=== PATIENT | female | born 1980 | race Caucasian/White ===

== ENCOUNTER → 2016-07-19 | Outpatient (CLI) | payer OTHER ==
[~2016-07-19] MED LIST: COLACE100 MG PO; HYDROCODONE BIT1 T11 PO; IBU-6600 MG PO; MOTRIN800 MG PO; PERCOCET 325 MG1 TA7 PO; PRENATAL1 TA1; ZITHROMAX250 MG PO
[2016-07-20 08:17] LABS: HIV 1+2 AB + HIV1 P24 AG Non Reactive (Non Reactive)
== END | disposition home or self-care (01) ==
LOC: LAB 08:02
PROVIDERS: Internal Medicine
DX: Z20.828 Contact with and (suspected) exposure to other viral communicable diseases (principal)

== ENCOUNTER → 2016-10-19 | Outpatient (CLI) | payer OTHER | END | disposition home or self-care (01) | LOC: RESCLI 09:21 | DX: M94.0 Chondrocostal junction syndrome [Tietze] (principal) ==

== ENCOUNTER → 2017-01-12 | Outpatient (CLI) | payer OTHER ==
[2017-01-12 16:10] LABS: BASO % 0.4 % (0.0-1.0); EOS # 0.1 10*3/uL (0.0-0.4); HEMATOCRIT 40.3 % (37.0-47.0); HEMOGLOBIN 13.9 g/dl (12.0-16.0); LYMPH # 1.6 10*3/uL (1.3-4.4); LYMPH % 23.1 % (27.0-41.0); MEAN CORPUSCULAR HGB 30.3 pg (27.0-31.0); MEAN CORPUSCULAR HGB CONC 34.5 g/dl (33.0-37.0); MEAN PLATELET VOLUME 10.6 fl (9.6-12.3); MONO # 0.4 10*3/uL (0.1-1.0); MONO % 5.7 % (3.0-9.0); NEUT # 4.6 10*3/uL (2.3-7.9); NEUT % 69.2 % (47.0-73.0); PLATELET COUNT AUTOMATED 301 10*3/uL (130-400); RED BLOOD COUNT 4.58 10*6/uL (4.10-5.10); RED CELL DISTRI WIDTH 11.8 % (0-14.5); WHITE BLOOD COUNT 6.7 10*3/uL (4.8-10.8)
[2017-01-12 16:20] LABS: ALBUMIN 4.4 gm/dl (3.1-4.5); ALKALINE PHOSPHATASE 75 U/L (45-117); BUN 11 mg/dl (7-24); CHLORIDE 104 mmol/L (98-107); CHOLESTEROL 150 mg/dL (<200); CREATININE 0.89 mg/dL (0.55-1.02); HDL CHOLESTEROL 47 mg/dl (40-60); LDL CHOLESTEROL 92 mg/dL (9-159); POTASSIUM 3.8 mmol/L (3.5-5.1); SGOT/AST 11 IU/L (3-35); SGPT/ALT 22 U/L (12-78); SODIUM 140 mmol/L (136-145); TOTAL PROTEIN 7.9 gm/dL (6.4-8.2); TRIGLYCERIDES 55 mg/dl (<150); VLDL CHOLESTEROL 11 mg/dL (6-40)
[2017-01-12 16:21] LABS: FREE T4 1.12 ng/dl (0.76-1.46)
[2017-01-12 16:52] LABS: VITAMIN D, 25-HYDROXY 26.6 ng/mL (30-100)
== END | disposition home or self-care (01) ==
LOC: LAB 15:42
PROVIDERS: Internal Medicine
DX: Z13.220 Encounter for screening for lipoid disorders (principal); Z13.1 Encounter for screening for diabetes mellitus; Z13.21 Encounter for screening for nutritional disorder; R53.81 Other malaise; E78.2 Mixed hyperlipidemia; E55.9 Vitamin D deficiency, unspecified

== ENCOUNTER 2017-07-22 10:05 | Emergency (ER) | payer OTHER ==
[~2017-07-22] VITALS: Wt 63.5 kg
[2017-07-22] MEDS ORDERED: AVPAK AZITHROM250 M1 PO (10:15)
== END 2017-07-22 10:36 | disposition home or self-care (01) ==
LOC: ED 10:05
DX: J06.9 Acute upper respiratory infection, unspecified (principal)

== ENCOUNTER 2017-07-24 10:21 | Emergency (ER) | payer OTHER ==
[~2017-07-24] VITALS: Ht 165.1 cm; Wt 65.8 kg
[~2017-07-24 10:21] MED LIST changes: +AVPAK AZITHROM250 M1 PO
[2017-07-24 11:06] LABS: BASO % 0.2 % (0.0-1.0); EOS # 0.1 10*3/uL (0.0-0.4); EOS % 0.8 % (1.0-4.0); HEMATOCRIT 40.7 % (37.0-47.0); HEMOGLOBIN 14.1 g/dl (12.0-16.0); LYMPH # 1.1 10*3/uL (1.3-4.4); LYMPH % 12.6 % (27.0-41.0); MEAN CELL VOLUME 90.8 fl (81.0-99.0); MEAN CORPUSCULAR HGB 31.5 pg (27.0-31.0); MEAN CORPUSCULAR HGB CONC 34.6 g/dl (33.0-37.0); MONO # 0.4 10*3/uL (0.1-1.0); MONO % 4.8 % (3.0-9.0); NEUT # 6.8 10*3/uL (2.3-7.9); NEUT % 81.4 % (47.0-73.0); PLATELET COUNT AUTOMATED 277 10*3/uL (130-400); RED BLOOD COUNT 4.48 10*6/uL (4.10-5.10); RED CELL DISTRI WIDTH 11.7 % (0-14.5); WHITE BLOOD COUNT 8.4 10*3/uL (4.8-10.8)
[2017-07-24 11:21] LABS: ALKALINE PHOSPHATASE 72 U/L (45-117); BUN 12 mg/dl (7-24); CHLORIDE 106 mmol/L (98-107); CREATININE 0.76 mg/dL (0.55-1.02); POTASSIUM 3.8 mmol/L (3.5-5.1); SGOT/AST 15 IU/L (3-35); SGPT/ALT 25 U/L (12-78); SODIUM 139 mmol/L (136-145); TOTAL PROTEIN 7.8 gm/dL (6.4-8.2)
[2017-07-24] MEDS ORDERED: CLARITIN-D 24 H1 TAB PO (11:24)
[2017-07-24] MEDS ORDERED: ROBITUSSIN DM 105 ML PO (11:24)
[2017-07-24] MEDS ORDERED: FLONASE ALLERG9.9 ML NAS (11:24)
[2017-07-24] MEDS ORDERED: PREDNISONE10 MG PO (11:24)
== END 2017-07-24 11:30 | disposition home or self-care (01) ==
LOC: ED 10:21
PROVIDERS: Nurse Practitioner Family
DX: J06.9 Acute upper respiratory infection, unspecified (principal); R03.0 Elevated blood-pressure reading, without diagnosis of hypertension; Z79.899 Other long term (current) drug therapy

== ENCOUNTER → 2018-07-27 | Outpatient (CLI) | payer OTHER ==
[~2018-07-27] MED LIST changes: +CLARITIN-D 24 H1 TAB PO; +FLONASE ALLERG9.9 ML NAS; +PREDNISONE10 MG PO; +ROBITUSSIN DM 105 ML PO
[2018-07-27 05:59] LABS: B-hCG (QUALITATIVE) NEGATIVE (NEGATIVE); CHOLESTEROL 157 mg/dL (<200); FREE T4 0.97 ng/dl (0.76-1.46); HDL CHOLESTEROL 43 mg/dl (40-60); LDL CHOLESTEROL 98 mg/dL (9-159); TRIGLYCERIDES 79 mg/dl (<150); VLDL CHOLESTEROL 16 mg/dL (6-40)
[2018-07-27 06:14] LABS: BASO # 0.1 10*3/uL (0.0-0.1); EOS # 0.2 10*3/uL (0.0-0.4); EOS % 3.4 % (1.0-4.0); HEMOGLOBIN 13.8 g/dl (12.0-16.0); LYMPH # 1.4 10*3/uL (1.3-4.4); LYMPH % 27.3 % (27.0-41.0); MEAN CELL VOLUME 90.7 fl (81.0-99.0); MEAN CORPUSCULAR HGB 31.3 pg (27.0-31.0); MEAN CORPUSCULAR HGB CONC 34.5 g/dl (33.0-37.0); MEAN PLATELET VOLUME 11.2 fl (9.6-12.3); MONO # 0.4 10*3/uL (0.1-1.0); MONO % 8.2 % (3.0-9.0); NEUT % 59.9 % (47.0-73.0); PLATELET COUNT AUTOMATED 270 10*3/uL (130-400); RED BLOOD COUNT 4.41 10*6/uL (4.10-5.10); RED CELL DISTRI WIDTH 12.1 % (0-14.5)
[2018-07-28 07:10] LABS: FOLLICLE STIMULATING HORMONE 6.3 mIU/mL (.); LUTEINIZING HORMONE 004283 6.5 mIU/mL (.); PROLACTIN 004465 11.8 ng/mL (4.8-23.3)
[2018-07-29 04:04] LABS: TESTOSTERONE FREE, (DIRECT) 2.2 pg/mL (0.0-4.2)
== END | disposition home or self-care (01) ==
LOC: LAB 01:19
PROVIDERS: Obstetrics & Gynecology
DX: N93.9 Abnormal uterine and vaginal bleeding, unspecified (principal); E66.3 Overweight

== ENCOUNTER → 2018-11-27 | Outpatient (CLI) | payer OTHER | END | disposition home or self-care (01) | LOC: LAB 14:37 | DX: K90.0 Celiac disease (principal) ==

== ENCOUNTER 2018-12-05 14:19 | Emergency (ER) | payer OTHER ==
[~2018-12-05] VITALS: Ht 165.1 cm; Wt 72.6 kg
[2018-12-05 14:57] LABS: BASO % 0.4 % (0.0-1.0); EOS # 0.1 10*3/uL (0.0-0.4); EOS % 1.7 % (1.0-4.0); HEMATOCRIT 39.5 % (37.0-47.0); HEMOGLOBIN 13.6 g/dl (12.0-16.0); LYMPH # 1.8 10*3/uL (1.3-4.4); LYMPH % 24.1 % (27.0-41.0); MEAN CELL VOLUME 90.2 fl (81.0-99.0); MEAN CORPUSCULAR HGB 31.1 pg (27.0-31.0); MEAN CORPUSCULAR HGB CONC 34.4 g/dl (33.0-37.0); MEAN PLATELET VOLUME 11.9 fl (9.6-12.3); MONO # 0.5 10*3/uL (0.1-1.0); MONO % 5.9 % (3.0-9.0); NEUT # 5.1 10*3/uL (2.3-7.9); NEUT % 67.6 % (47.0-73.0); PLATELET COUNT AUTOMATED 251 10*3/uL (130-400); RED BLOOD COUNT 4.38 10*6/uL (4.10-5.10); RED CELL DISTRI WIDTH 12.3 % (0-14.5); WHITE BLOOD COUNT 7.6 10*3/uL (4.8-10.8)
[2018-12-05 15:12] LABS: ALKALINE PHOSPHATASE 55 U/L (45-117); BUN 13 mg/dl (7-24); CHLORIDE 106 mmol/L (98-107); CREATININE 0.87 mg/dL (0.55-1.02); LIPASE 140 U/L (73-393); POTASSIUM 4.9 mmol/L (3.5-5.1); SGOT/AST 29 IU/L (3-35); SGPT/ALT 21 U/L (12-78); SODIUM 138 mmol/L (136-145); TOTAL PROTEIN 7.2 gm/dL (6.4-8.2)
[2018-12-05 15:50] LABS: BILIRUBIN NEGATIVE (NEGATIVE); BLOOD TRACE-LYSED (NEGATIVE); CLARITY CLEAR (CLEAR); COLOR YELLOW (YELLOW); GLUCOSE NEGATIVE (NEGATIVE); KETONE NEGATIVE (NEGATIVE); LEUKO ESTERASE NEGATIVE (NEGATIVE); NITRITE NEGATIVE (NEGATIVE); UROBILINOGEN 0.2 E.U./dl (0.2-1.0)
[2018-12-05 15:57] LABS: RBC 0-2 rbc/hpf (0-2)
== END 2018-12-05 17:27 | disposition home or self-care (01) ==
LOC: ED 14:19
PROVIDERS: Physician Assistant
DX: D26.9 Other benign neoplasm of uterus, unspecified (principal)

== ENCOUNTER → 2018-12-31 | Outpatient (CLI) | payer OTHER ==
[~2018-12-31] MED LIST changes: +HYDROCODONE-AC1 EAC1 PO; +IBU800 M1 PO
== END | disposition home or self-care (01) ==
LOC: LAB 14:20
DX: N93.8 Other specified abnormal uterine and vaginal bleeding (principal); D25.9 Leiomyoma of uterus, unspecified

== ENCOUNTER 2019-01-08 01:43 | Inpatient (IN) | payer OTHER ==
[2019-01-03 15:15] VITALS: BP 132/77
[2019-01-08] VITALS (8 sets, daily range): BP systolic 113–144; BP diastolic 70–86
[~2019-01-08] VITALS: Ht 165.1 cm; Wt 67.1 kg
[~2019-01-08 01:43] MED LIST changes: -HYDROCODONE-AC1 EAC1 PO; -IBU800 M1 PO
--- NOTE | 2019-01-08 09:24 | NUR ---
IV started left hand with #20 protective cath after 1 attempts. Site prepped with Chloroprep. Sterile dressing applied. Patient tolerated procedure well. Started by Dr Wang in Surgery DREW ARTEAGA
--- NOTE | 2019-01-08 15:15 | NUR ---
A 38, admitted to , under the services of SHANNAN Mas DO with a diagnosis of HYSTERECTOMY. Chief complaint is PAIN. Patient arrived via bed from [place]. Monitor applied. Initial assessment completed. Vital signs taken and recorded. SHANNAN MAS DO notified of admission to the unit. Orders received. See assessment for past medical history, medications and allergies. Patient and/or family oriented to unit. [facility] M.SLakesha visitation policy reviewed. Clothing/patient valuable form completed. MENDOZA CINTRON
--- NOTE | 2019-01-08 15:15 | NUR ---
WOUND ASSESSMENT OCCURRED 01/08/19. UNABLE TO EDIT. ORIN INCISION SITE, DRESSING INTACT FROM SURGERY. NO WOUND ORDERS RECEIVED FROM DR. COOK AT THIS TIME.
--- NOTE | 2019-01-08 15:30 | NUR ---
PT ALERT AND ORIENTED. VOICES NO NEEDS AT THIS TIME. STATES THAT SHES A LITTLE TIRED. IV INFUSING; PATENT. CALL LIGHT IN REACH
--- NOTE | 2019-01-08 18:00 | NUR ---
PER PT, "TORADOL HELPED A LITTLE"
--- NOTE | 2019-01-08 19:00 | NUR ---
PT MEDICATED WITH NORCO PER ORDER FOR COMPLAINTS OF 10/10 PAIN. WILL MONITOR EFFECTIVENESS.
--- NOTE | 2019-01-08 19:49 | NUR ---
24 HR chart check completed.
--- NOTE | 2019-01-08 19:57 | NUR ---
PT REQUESTING TO STAY NIGHT. CALLED ANIMAL CARE SUPERVISOR, PER POLICY CANT STAY IN PT ROOM.
--- NOTE | 2019-01-08 20:00 | NUR ---
IS X 10 BREATHS WITH GOOD EFFORT. PATIENT WILL CONTINUE ON OWN
--- NOTE | 2019-01-08 21:29 | NUR ---
ADVANCED TO FULL LIQUID DIET FOR BREAKFAST PER ORDER AND PT REQUEST. TOLERATED CLEAR LIQUIDS WELL.
--- NOTE | 2019-01-08 22:54 | NUR ---
PT REFUSED SCD'S.
[2019-01-09] VITALS: BP 133/81
--- NOTE | 2019-01-09 05:55 | NUR ---
CORINEMERT Lai [id number] Please refer to the physician's history and physical for past medical history, comorbid conditions, and allergies. Diagnosis: TOTAL LAPROSCOPIC HYSTERECTOMY Brendan Score: 20,LOW OR NO RISK WOUND DESCRIPTIONS: Patient stated she had surgery with yesterday and will follow up with her upon discharge. Dressing intact to above pubic area with strikethrough drainage noted about 95% of the dressing is covered opsite is still intact at time of assessment. Patient has two steristripts intact to umbilical area and right lower quadrant. No draiange noted at time of assessment to the steristripts. Surface the patient is resting on: Isoflex SKIN PREVENTION RECOMMENDATION: 1. Pressure redistribution support surface as appropriate 2. Elevate heels 3. Remove boots/TEDS every shift and reapply 4. Head of bed 30 degrees as tolerated 5. Assess nutrition and hydration 6. Manage moisture 7. Avoid the use of containment devices while in bed 8. Use absorptive products on surfaces limit layers of linens on bed 9. Turn and reposition every 1-2 hours in bed and every 1 hour in chair as tolerated 10. Weight shifts every 15 minutes while up in chair 11. Offloading with pillows or device to keep heels elevated off bed 12. Monitor skin at least every shift 13. Inspect under medical devices twice a day WOUND TREATMENT RECOMMENDATIONS: Await post op order from Dr. Espinoza since performed the surgery.
--- NOTE | 2019-01-09 07:52 | NUR ---
PATIENT C/O LOWER ABDOMINAL PAIN AT SURGICAL SITE. MEDICATED WITH NORCO PER PRN ORDER. WILL CONTINUE TO MONITOR.
[2019-01-09 08:00] VITALS: BP 121/68
--- NOTE | 2019-01-09 09:00 | NUR ---
PATIENT RESTING QUIETLY. NORCO SEMIEFFECTIVE. STATES THAT IT DECREASES THE PAIN BUT DOES NOT TAKE IT COMPLETELY AWAY.
--- NOTE | 2019-01-09 11:31 | NUR ---
PATIENT C/O LOWER ABDOMINAL PAIN AT SURGICAL SITE. PATIENT IS GOING TO GET UP IN THE CHAIR OUT OF BED. MEDICATED WITH TORADOL PER PRN ORDER. WILL CONTINUE TO MONITOR.
[2019-01-09 12:00] VITALS: BP 115/69
--- NOTE | 2019-01-09 12:30 | NUR ---
PATIENT SITTING UP IN CHAIR. NO FURTHER C/O PAIN AT THIS TIME.
--- NOTE | 2019-01-09 13:41 | NUR ---
[employer] Director in to talk to patient. Patient states lives at HOME with . There are FEW steps in the home. Physician: DILIP Pharmacy: [facility]: NO Patient's level of ADLs: INDEPENDENT Patient has working utilities: YES DME: NONE Follow-up physician's appointment after d/c: WILL BE MADE BY HOSPITALIST NURSE DIRECTOR ON DISCHARGE Does patient want to access PORTAL?: NO Discharge plan PT LIVES AT HOME WITH HER AND IS INDEPENDENT IN CARE. PT STATES SHE WILL RETURN HOME WITH ON DISCHARGE AND WILL HAVE NO NEW NEEDS. WILL CONTINUE TO FOLLOW. STATES HER WILL TRANSPORT HER HOME. LYNNE CLARKE
[2019-01-09 13:49] LABS: BASO % 0.2 % (0.0-1.0); EOS % 0.2 % (1.0-4.0); HEMATOCRIT 32.1 % (37.0-47.0); HEMOGLOBIN 10.6 g/dl (12.0-16.0); LYMPH # 1.6 10*3/uL (1.3-4.4); LYMPH % 17.4 % (27.0-41.0); MEAN CELL VOLUME 93.9 fl (81.0-99.0); MEAN PLATELET VOLUME 10.9 fl (9.6-12.3); MONO # 0.8 10*3/uL (0.1-1.0); MONO % 8.8 % (3.0-9.0); NEUT # 6.9 10*3/uL (2.3-7.9); NEUT % 73.2 % (47.0-73.0); PLATELET COUNT AUTOMATED 269 10*3/uL (130-400); RED BLOOD COUNT 3.42 10*6/uL (4.10-5.10); RED CELL DISTRI WIDTH 12.3 % (0-14.5); WHITE BLOOD COUNT 9.4 10*3/uL (4.8-10.8)
--- NOTE | 2019-01-09 14:56 | NUR ---
PATIENT BACK IN BED. C/O LOWER ABDOMINAL SURGICAL PAIN. MEDICATED WITH NORCO PER PRN ORDER.
--- NOTE | 2019-01-09 15:37 | NUR ---
PATIENT RESTING QUIETLY. PAIN HAS DECREASED SINCE MUSCLE SHOALS. WILL CONTINUE TO MONITOR.
[2019-01-09 16:00] VITALS: BP 104/67
--- NOTE | 2019-01-09 19:35 | NUR ---
NORCO GIVEN PER ORDER FOR RIGHT SIDE ABD/RIB PAIN RATED "7". SEE MAR.
[2019-01-09 20:00] VITALS: BP 105/52
--- NOTE | 2019-01-09 20:30 | NUR ---
NORCO EFFECTIVE FOR DISCOMFORT. ENCOURAGED PATIENT TO GET UP AND MOVE MORE. PT. SAID SHE WAS UP TO BATHROOM AND SAT IN CHAIR EARLIER.
[2019-01-10] VITALS: BP 110/68
--- NOTE | 2019-01-10 02:04 | NUR ---
24 HR chart check completed.
--- NOTE | 2019-01-10 02:34 | NUR ---
NORCO GIVEN PER ORDER FOR ABD/INCISIONAL PAIN RATED "8". SEE MAR.
--- NOTE | 2019-01-10 03:20 | NUR ---
Aliyah becoming effective per pt.
--- NOTE | 2019-01-10 06:47 | NUR ---
MYLICON GIVEN PER ORDER FOR GAS PAIN. SEE MAR.
--- NOTE | 2019-01-10 07:53 | NUR ---
PATIENT C/O LOWER ABDOMINAL PAIN AT SURGICAL SITE. RATE 9/10 ON PAIN SCALE. MEDICATED WITH NORCO PER PRN ORDER. WILL CONTINUE TO MONITOR.
[2019-01-10 08:00] VITALS: BP 124/65
[2019-01-10] MEDS ORDERED: HYDROCODONE-AC1 EAC1 PO (08:01)
[2019-01-10] MEDS ORDERED: IBU800 M1 PO (08:01)
[2019-01-10 12:00] VITALS: BP 122/62
--- NOTE | 2019-01-10 13:05 | NUR ---
PT STATES NO NEW NEEDS AT HOME ON DISCHARGE. WILL CONTINUE TO FOLLOW.
--- NOTE | 2019-01-10 14:07 | NUR ---
PATIENT DISCHARGED TO HOME. ALL PERSONAL BELONGINGS SENT WITH PATIENT. IV DISCONTINUED. DISCHARGE INSTRUCTIONS GIVEN AND REVIEWED WITH PATIENT. PATIENT GIVEN PRESCRIPTION FOR NORCO AND INFORMED OF IBUPROFEN PRESCRIPTION SENT TO [facility]. REYNOLDS CATHETER SWITCHED TO LEG BAG. INSTRUCTED TO FOLLOW UP WITH IN ONE WEEK.
== END 2019-01-10 14:07 | disposition home or self-care (01) | DRG 743 ==
LOC: SDC 01:43 → 5E 07:35 → SDC 09:30 → 5E 01-10 14:07
PROVIDERS: ADMIT Obstetrics & Gynecology
DX: D25.1 Intramural leiomyoma of uterus (principal); N94.10 Unspecified dyspareunia; G89.29 Other chronic pain; Z98.891 History of uterine scar from previous surgery; Z82.49 Family history of ischemic heart disease and other diseases of the circulatory system

== ENCOUNTER → 2019-01-14 | Outpatient (CLI) | payer OTHER ==
[~2019-01-14] MED LIST changes: +HYDROCODONE-AC1 EAC1 PO; +IBU800 M1 PO
[2019-01-14 17:51] LABS: BILIRUBIN NEGATIVE (NEGATIVE); BLOOD 1+ (NEGATIVE); CLARITY CLOUDY (CLEAR); COLOR YELLOW (YELLOW); GLUCOSE NEGATIVE (NEGATIVE); KETONE NEGATIVE (NEGATIVE); LEUKO ESTERASE 1+ (NEGATIVE); NITRITE POSITIVE (NEGATIVE); SPECIFIC GRAVITY 1.015 (1.005-1.030); UROBILINOGEN 0.2 E.U./dl (0.2-1.0)
[2019-01-14 18:06] LABS: BACTERIA 2+; CALCIUM OXALATE CRYSTALS 1+; RBC 16-20 rbc/hpf (0-2)
== END | disposition home or self-care (01) ==
LOC: LAB 17:25
PROVIDERS: Obstetrics & Gynecology
DX: R30.0 Dysuria (principal)

== ENCOUNTER → 2019-01-23 | Outpatient (CLI) | payer OTHER ==
[2019-01-23 17:52] LABS: BILIRUBIN NEGATIVE (NEGATIVE); BLOOD 3+ (NEGATIVE); CLARITY SL CLOUDY (CLEAR); COLOR YELLOW (YELLOW); GLUCOSE NEGATIVE (NEGATIVE); KETONE NEGATIVE (NEGATIVE); LEUKO ESTERASE 1+ (NEGATIVE); NITRITE NEGATIVE (NEGATIVE); SPECIFIC GRAVITY 1.015 (1.005-1.030); UROBILINOGEN 0.2 E.U./dl (0.2-1.0)
[2019-01-23 18:02] LABS: RBC 51-100 rbc/hpf (0-2); WBC 31-40 wbc/hpf (0-5)
[2019-01-23 18:03] LABS: BACTERIA 1+
== END | disposition home or self-care (01) ==
LOC: LAB 17:13
PROVIDERS: Obstetrics & Gynecology
DX: R30.0 Dysuria (principal)

== ENCOUNTER 2019-08-27 10:23 | Emergency (ER) | payer OTHER ==
[~2019-08-27] VITALS: Wt 70.3 kg
[2019-08-27] MEDS ORDERED: IBU800 MG PO (12:52)
== END 2019-08-27 13:04 | disposition home or self-care (01) ==
LOC: ED 10:23
DX: S93.401A Sprain of unspecified ligament of right ankle, initial encounter (principal); M79.671 Pain in right foot; G43.909 Migraine, unspecified, not intractable, without status migrainosus; X58.XXXA Exposure to other specified factors, initial encounter; Y93.02 Activity, running; Y92.89 Other specified places as the place of occurrence of the external cause; Y99.8 Other external cause status

== ENCOUNTER → 2020-10-30 | Outpatient (CLI) | payer OTHER ==
[~2020-10-30] MED LIST changes: +IBU800 MG PO
[2020-10-30 07:15] LABS: BASO # 0.1 10*3/uL (0.0-0.1); BASO % 0.7 % (0.0-1.0); EOS # 0.1 10*3/uL (0.0-0.4); LYMPH # 1.5 10*3/uL (1.3-4.4); LYMPH % 22.4 % (27.0-41.0); MEAN CELL VOLUME 89.9 fl (81.0-99.0); MEAN CORPUSCULAR HGB 31.3 pg (27.0-31.0); MEAN CORPUSCULAR HGB CONC 34.8 g/dl (33.0-37.0); MEAN PLATELET VOLUME 10.8 fl (9.6-12.3); MONO # 0.4 10*3/uL (0.1-1.0); MONO % 6.4 % (3.0-9.0); NEUT # 4.7 10*3/uL (2.3-7.9); NEUT % 69.2 % (47.0-73.0); PLATELET COUNT AUTOMATED 284 10*3/uL (130-400); RED BLOOD COUNT 4.67 10*6/uL (4.10-5.10); RED CELL DISTRI WIDTH 11.9 % (0-14.5); WHITE BLOOD COUNT 6.8 10*3/uL (4.8-10.8)
[2020-10-30 07:50] LABS: ALBUMIN 4.2 gm/dl (3.1-4.5); ALKALINE PHOSPHATASE 65 U/L (45-117); BUN 15 mg/dl (7-24); CHLORIDE 108 mmol/L (98-107); CHOLESTEROL 162 mg/dL (<200); CREATININE 0.81 mg/dL (0.55-1.02); FREE T4 1.03 ng/dl (0.76-1.46); LDL CHOLESTEROL 108 mg/dL (9-159); POTASSIUM 3.9 mmol/L (3.5-5.1); SGOT/AST 13 IU/L (3-35); SGPT/ALT 24 U/L (12-78); SODIUM 138 mmol/L (136-145); TOTAL PROTEIN 7.6 gm/dL (6.4-8.2); TRIGLYCERIDES 84 mg/dl (<150)
[2020-10-30 09:32] LABS: VITAMIN D, 25-HYDROXY 52.3 ng/mL (30-100)
== END | disposition home or self-care (01) ==
LOC: LAB 00:29
PROVIDERS: ATTEND Internal Medicine
DX: Z00.01 Encounter for general adult medical examination with abnormal findings (principal); R22.43 Localized swelling, mass and lump, lower limb, bilateral; E55.9 Vitamin D deficiency, unspecified; Z13.21 Encounter for screening for nutritional disorder; Z13.220 Encounter for screening for lipoid disorders; Z13.1 Encounter for screening for diabetes mellitus

== ENCOUNTER 2021-02-16 12:31 | Emergency (ER) | payer OTHER ==
[~2021-02-16] VITALS: Ht 165.1 cm; Wt 69.9 kg
[2021-02-16] MEDS ORDERED: PROVENTIL HFA6.7 GM INH (14:28)
[2021-02-16] MEDS ORDERED: PREDNISONE20 M1 PO (14:28)
== END 2021-02-16 15:29 | disposition home or self-care (01) ==
LOC: ED 12:31
DX: U07.1 COVID-19 (principal)

== ENCOUNTER → 2022-01-25 | Outpatient (CLI) | payer OTHER ==
[~2022-01-25] MED LIST changes: +PREDNISONE20 M1 PO; +PROVENTIL HFA6.7 GM INH
[2022-01-25 06:05] LABS: BASO % 0.6 % (0.0-1.0); EOS # 0.1 10*3/uL (0.0-0.4); EOS % 1.9 % (1.0-4.0); HEMATOCRIT 42.7 % (37.0-47.0); LYMPH # 1.4 10*3/uL (1.3-4.4); LYMPH % 22.2 % (27.0-41.0); MEAN CELL VOLUME 91.2 fl (81.0-99.0); MEAN CORPUSCULAR HGB 31.4 pg (27.0-31.0); MEAN CORPUSCULAR HGB CONC 34.4 g/dl (33.0-37.0); MEAN PLATELET VOLUME 11.1 fl (9.6-12.3); MONO # 0.5 10*3/uL (0.1-1.0); MONO % 7.3 % (3.0-9.0); NEUT # 4.1 10*3/uL (2.3-7.9); NEUT % 66.7 % (47.0-73.0); PLATELET COUNT AUTOMATED 284 10*3/uL (130-400); RED BLOOD COUNT 4.68 10*6/uL (4.10-5.10); RED CELL DISTRI WIDTH 12.2 % (0-14.5); WHITE BLOOD COUNT 6.2 10*3/uL (4.8-10.8)
[2022-01-25 06:09] LABS: ALKALINE PHOSPHATASE 59 U/L (45-117); BUN 15 mg/dl (7-24); CHLORIDE 107 mmol/L (98-107); CHOLESTEROL 170 mg/dL (<200); CREATININE 0.85 mg/dL (0.55-1.02); FREE T4 0.91 ng/dl (0.76-1.46); LDL CHOLESTEROL 107 mg/dL (9-159); POTASSIUM 3.9 mmol/L (3.5-5.1); SGOT/AST 12 IU/L (3-35); SGPT/ALT 21 U/L (12-78); SODIUM 138 mmol/L (136-145); TRIGLYCERIDES 82 mg/dl (<150)
[2022-01-25 10:45] LABS: VITAMIN D, 25-HYDROXY 34.6 ng/mL (30-100)
[2022-01-26 14:07] LABS: t-TRANSGLUTAMINASE (tTG) IGA <2 U/mL (0-3); t-TRANSGLUTAMINASE (tTG) IgG 3 U/mL (0-5)
== END | disposition home or self-care (01) ==
LOC: LAB 00:18
PROVIDERS: ATTEND Internal Medicine
DX: Z13.811 Encounter for screening for lower gastrointestinal disorder (principal); Z13.0 Encounter for screening for diseases of the blood and blood-forming organs and certain disorders involving the immune mechanism; Z13.1 Encounter for screening for diabetes mellitus; Z13.220 Encounter for screening for lipoid disorders; Z13.21 Encounter for screening for nutritional disorder; Z13.228 Encounter for screening for other metabolic disorders; Z13.6 Encounter for screening for cardiovascular disorders; Z13.89 Encounter for screening for other disorder; R53.81 Other malaise; E55.9 Vitamin D deficiency, unspecified; D51.9 Vitamin B12 deficiency anemia, unspecified; E03.9 Hypothyroidism, unspecified; D52.9 Folate deficiency anemia, unspecified; E70.0 Classical phenylketonuria; D80.2 Selective deficiency of immunoglobulin A [IgA]

== ENCOUNTER → 2023-02-10 | Outpatient (CLI) | payer BC | END | disposition home or self-care (01) | LOC: RAD 12:10 | PROVIDERS: ATTEND Internal Medicine | DX: M25.571 Pain in right ankle and joints of right foot (principal) ==

== ENCOUNTER → 2023-02-15 | Outpatient (CLI) | payer BC ==
[2023-02-15 14:59] LABS: BASO % 0.4 % (0.0-1.0); EOS # 0.1 10*3/uL (0.0-0.4); EOS % 0.7 % (1.0-4.0); HEMATOCRIT 41.6 % (37.0-47.0); LYMPH # 1.3 10*3/uL (1.3-4.4); LYMPH % 14.7 % (27.0-41.0); MEAN CELL VOLUME 90.6 fl (81.0-99.0); MEAN CORPUSCULAR HGB 31.4 pg (27.0-31.0); MEAN CORPUSCULAR HGB CONC 34.6 g/dl (33.0-37.0); MEAN PLATELET VOLUME 10.7 fl (9.6-12.3); MONO # 0.5 10*3/uL (0.1-1.0); MONO % 5.5 % (3.0-9.0); NEUT % 78.4 % (47.0-73.0); PLATELET COUNT AUTOMATED 334 10*3/uL (130-400); RED BLOOD COUNT 4.59 10*6/uL (4.10-5.10); RED CELL DISTRI WIDTH 12.8 % (0-14.5); WHITE BLOOD COUNT 8.9 10*3/uL (4.8-10.8)
[2023-02-15 15:47] LABS: VITAMIN D, 25-HYDROXY 33.2 ng/mL (30-100)
[2023-02-15 15:50] LABS: ALKALINE PHOSPHATASE 58 U/L (46-116); BUN 17 mg/dl (9-23); CHLORIDE 105 mmol/L (98-107); CHOLESTEROL 184 mg/dL (<200); FREE T4 1.05 ng/dl (0.89-1.76); LDL CHOLESTEROL 121 mg/dL (9-159); POTASSIUM 4.1 mmol/L (3.4-5.1); SGPT/ALT 25 U/L (5-49); TOTAL PROTEIN 7.2 gm/dL (6.0-8.0); TRIGLYCERIDES 72 mg/dl (<150)
== END | disposition home or self-care (01) ==
LOC: LAB 14:35 → US 15:00
PROVIDERS: ATTEND Internal Medicine
DX: R60.9 Edema, unspecified (principal); Z00.00 Encounter for general adult medical examination without abnormal findings; Z13.0 Encounter for screening for diseases of the blood and blood-forming organs and certain disorders involving the immune mechanism; Z13.1 Encounter for screening for diabetes mellitus; Z13.21 Encounter for screening for nutritional disorder; Z13.220 Encounter for screening for lipoid disorders; Z13.228 Encounter for screening for other metabolic disorders; Z13.29 Encounter for screening for other suspected endocrine disorder; Z13.6 Encounter for screening for cardiovascular disorders; Z13.89 Encounter for screening for other disorder; Z13.9 Encounter for screening, unspecified

== ENCOUNTER → 2023-02-27 | Outpatient (CLI) | payer BC | END | disposition home or self-care (01) | LOC: MRI 03:54 | PROVIDERS: ATTEND Internal Medicine | DX: S99.921A Unspecified injury of right foot, initial encounter (principal); S93.401A Sprain of unspecified ligament of right ankle, initial encounter; M25.371 Other instability, right ankle; M19.071 Primary osteoarthritis, right ankle and foot; M65.871 Other synovitis and tenosynovitis, right ankle and foot; X58.XXXA Exposure to other specified factors, initial encounter; Y93.89 Activity, other specified; Y92.89 Other specified places as the place of occurrence of the external cause; Y99.8 Other external cause status ==